=== PATIENT | male | born 1995 | race American Indian/Alaskan Native ===

== ENCOUNTER 2016-11-25 22:33 | Emergency (ER) | payer OTHER ==
[2016-11-25] MEDS ORDERED: ZOFRAN IV ONE (23:52)
[2016-11-25] MEDS ORDERED: AMIDATE IV ONE (23:52)
[2016-11-25] MEDS ORDERED: SUBLIMAZE IV ONE ×2 (23:52)
[2016-11-25] MEDS ORDERED: DILAUDID IV ONE (23:54)
--- NOTE | 2016-11-26 | Emergency Department Report ---
ED Upper Extremity Inj HPI - General Chief Complaint: Shoulder Injury Stated Complaint: RIGHT SHOULDER PAIN Time Seen by Provider: 11/25/16 23:48 Source: patient Mode of arrival: Ambulatory Limitations: No Limitations - History of Present Illness Initial Comments: 21-year-old male with a past medical history of recurrent right shoulder dislocation presents to the hospital complaining of right shoulder dislocation. Patient states he was laying in a bed and rotate his shoulder and felt a pop. Now presents with right shoulder deformity and 10/10 aching constant pain. Pain was to palpation. No alleviating factors. This is patient's 6 or 7 dislocation. Last with previous visit was "a long time ago". Patient has a recent orthopedic evaluation scheduled. Denies previous shoulder surgery. [id number]. Denies previous problems with anesthesia - Related Data Previous Rx's Medication Instructions Recorded Last Taken Type Ibuprofen [Motrin] 800 mg PO Q8HR PRN #30 tablet 11/26/16 Unknown Rx traMADol [Ultram 50 MG tab] 50 mg PO Q6HR PRN #20 tablet 11/26/16 Unknown Rx Allergies Allergy/AdvReac Type Severity Reaction Status Date / Time No Known Allergies Allergy Verified 11/26/16 00:04 ED Review of Systems ROS: Stated complaint: RIGHT SHOULDER PAIN Other details as noted in HPI Comment: All other systems reviewed and negative Other: Constitutional: No fevers chills or weight loss Eyes: No eye pain visual changes or discharge ENT: No ear pain or throat pain Neck: Denies pain Respiratory: Denies cough wheezing shortness of breath Cardiovascular: Denies chest pain, palpitations, syncope GI: Denies abdominal pain, nausea, vomiting, diarrhea : Denies dysuria Musculoskeletal: As per HPI Skin: Denies rash, lesions, erythema Neurologic: Denies headache, numbness, weakness Psychiatric: Denies suicidal ideation, hallucinations ED Past Medical Hx - Past Medical History Previous Medical History?: Yes Additional medical history: right shoulder dislocation - Surgical History Past Surgical History?: No - Social History Smoking Status: Current Every Day Smoker Substance Use Type: Non Opiate Pain - Medications Home Medications: Home Medications Medication Instructions Recorded Confirmed Last Taken Type Ibuprofen [Motrin] 800 mg PO Q8HR PRN #30 tablet 11/26/16 Unknown Rx traMADol [Ultram 50 MG tab] 50 mg PO Q6HR PRN #20 tablet 11/26/16 Unknown Rx ED Physical Exam - General Limitations: No Limitations - Other Other exam information: General: No limitations, patient is alert in no acute distress Head exam: Atraumatic, normocephalic Eyes exam: Normal appearance, pupils equal reactive to light ENT: Moist mucous membrane, normal oropharynx Neck exam: Normal inspection, full range of motion, no meningismus nontender Respiratory exam: Clear to auscultation bilateral, no wheezes, rales, crackles Cardiovascular: Normal rate and rhythm, normal heart sounds Abdomen: Soft, nondistended, and nontender, with normal bowel sounds, no rebound, or guarding Extremity: Limited range of motion of right shoulder positive deformity, 2+ radial pulse Back: Normal Inspection, full range of motion, no tenderness Neurologic: Alert, oriented x3, cranial nerves intact, no motor or sensory deficit Psychiatric: normal affect, normal mood Skin: Warm, dry, intact ED Course Vital Signs 11/25/16 11/25/16 11/26/16 22:59 23:55 00:15 Temperature 98.6 F 98.6 F Temperature [ Intra-Procedure ] Temperature [ Pre-Procedure] Pulse Rate 81 84 Pulse Rate [ Intra-Procedure ] Pulse Rate [Pre -Procedure] Respiratory 18 20 20 Rate Respiratory Rate [Intra- Procedure] Respiratory Rate [Pre- Procedure] Blood Pressure 155/87 Blood Pressure [Intra- Procedure] Blood Pressure 139/76 [Left] Blood Pressure [Pre-Procedure] O2 Sat by Pulse 100 100 100 Oximetry O2 Sat by Pulse Oximetry [ Intra-Procedure ] O2 Sat by Pulse Oximetry [Pre- Procedure] 11/26/16 11/26/16 11/26/16 00:20 00:22 00:25 Temperature Temperature [ 98.6 F 98.6 F Intra-Procedure ] Temperature [ 98.6 F Pre-Procedure] Pulse Rate Pulse Rate [ 85 80 Intra-Procedure ] Pulse Rate [Pre 80 -Procedure] Respiratory 20 Rate Respiratory 20 20 Rate [Intra- Procedure] Respiratory 20 Rate [Pre- Procedure] Blood Pressure Blood Pressure 134/66 157/90 [Intra- Procedure] Blood Pressure [Left] Blood Pressure 139/76 [Pre-Procedure] O2 Sat by Pulse Oximetry O2 Sat by Pulse 100 100 Oximetry [ Intra-Procedure ] O2 Sat by Pulse 100 Oximetry [Pre- Procedure] 11/26/16 00:49 Temperature Temperature [ Intra-Procedure ] Temperature [ Pre-Procedure] Pulse Rate Pulse Rate [ Intra-Procedure ] Pulse Rate [Pre -Procedure] Respiratory 20 Rate Respiratory Rate [Intra- Procedure] Respiratory Rate [Pre- Procedure] Blood Pressure Blood Pressure [Intra- Procedure] Blood Pressure [Left] Blood Pressure [Pre-Procedure] O2 Sat by Pulse Oximetry O2 Sat by Pulse Oximetry [ Intra-Procedure ] O2 Sat by Pulse Oximetry [Pre- Procedure] - Reevaluation(s) Reevaluation #1: 11/26/16 01:13 Patient received Zofran and Dilaudid 0.5 mg for pain. Patient received medications for conscious sedation for reduction and requested additional pain medication. Additional Dilaudid 0.5 mg given - Moderate Sedation Indications: fracture/dislocation redu ASA Class: I Mallampati Airway Score: 2 Preparation: surveillance monitor applied IV Etomidate Dose (mgs): 10 Complications: none Interventions: oxygen applied Patient Tolerated Procedure: well Additional Comments: Seizure initiated at 12:20 AM it was complete by 12:25 AM. Patient observed for additional 45 minutes and is alert and at baseline - Orthopedic Joint Reduction Joint #1 Consent Obtained: written consent Time Out Performed: Yes Side: right Joint Reduction Location: shoulder Analgesia: moderate sedation Shoulder Technique Used (if applicable): traction/counter-traction, external rotation Post-Reduction Neuro Exam: intact Post-Reduction Vascular Exam: intact Post Reduction X-Ray Obtained: Yes Post Reduction X-Ray Results: reduced Splint Applied: Yes Patient Tolerated Procedure: well ED Medical Decision Making - Radiology Data Radiology results: image reviewed (right shoulder x-ray: Positive dislocation likely Hill-Sachs deformity) interpreted by me: Right shoulder x-ray: Status post reduction successful reduction without acute fracture - Medical Decision Making Plan to discharge patient home status post reduction. He has a scheduled follow -up with orthopedic physician however will provide alternative option shoulder immobilizer applied - Differential Diagnosis fracture, dislocation, strain Critical Care Time: No Critical care attestation.: If time is entered above; I have spent that time in minutes in the direct care of this critically ill patient, excluding procedure time. ED Disposition Clinical Impression: Recurrent dislocation, right shoulder Disposition: DISCHARGED TO HOME OR SELFCARE Is pt being admited?: No Condition: Stable Instructions: Shoulder Dislocation (ED) Additional Instructions: Follow-up with your orthopedic doctor or the one provided on these discharge instructions. Keep the arm immobilized until follow-up and further instructions. Return if symptoms worsen Prescriptions: Ibuprofen [Motrin] 800 mg PO Q8HR PRN #30 tablet PRN Reason: Pain traMADol [Ultram 50 MG tab] 50 mg PO Q6HR PRN #20 tablet PRN Reason: Pain Referrals: ANIA MARCIAL MD [Staff Physician] - 3-5 Days Time of Disposition: 01:18
[2016-11-26] MEDS ORDERED: DILAUDID IV ONE (00:44)
[2016-11-26 01:28] VITALS: BP 136/72
--- NOTE | 2016-11-26 09:55 | XRay Report ---
RIGHT SHOULDER, 3 VIEWS: History: Right shoulder pain, injury. Findings: An anterior, inferior dislocation is identified at the right glenohumeral joint. No obvious fracture. The remainder of the examination is normal. Impression: Right shoulder dislocation.
--- NOTE | 2016-11-26 09:56 | XRay Report ---
RIGHT SHOULDER, ONE VIEW History: Dislocation, postreduction film. Findings: Single AP view of the right shoulder demonstrates successful reduction of the anterior, inferior dislocation at the right glenohumeral joint demonstrated on yesterday's exam at 2315 hrs. No obvious fracture is appreciated. Impression: Anatomic alignment at the right glenohumeral joint.
== END 2016-11-26 01:49 | disposition home or self-care (01) ==
LOC: ED 22:33
DX: M24.411 Recurrent dislocation, right shoulder (principal); F17.200 Nicotine dependence, unspecified, uncomplicated
CPT/HCPCS: 23650; 73020; 73030; 96374; 96375; 99285; J1170; J2405; J3010